=== PATIENT | female | born 1995 | race Caucasian/White ===

== ENCOUNTER 2019-07-30 19:51 | Emergency (ER) | payer BC ==
[~2019-07-30] VITALS: Ht 175.3 cm; Wt 52.3 kg
[2019-07-30 20:08] VITALS: Ht 175.3 cm; Wt 52.3 kg
[2019-07-30 20:45] LABS: BASOPHILS 0.4 % (0-2); EOSINOPHILS 6.6 % (0-7); HEMATOCRIT 43.2 % (36.0-48.0); HEMOGLOBIN 14.1 g/dL (12-16); IMMATURE GRANULOCYTES 0.8 % (0-5); LYMPHOCYTES 41.2 % (15-50); MCH 29.4 pg (26.0-34.0); MCHC 32.6 g/dL (31.0-37.0); MCV 90.2 fL (80.0-100.0); MEAN PLATELET VOLUME 9.3 fL (7.4-10.4); MONOCYTES 7.6 % (2-11); NEUTROPHILS 43.4 % (40-80); RBC 4.79 10x6/uL (4.00-5.40); RDW 12.4 % (11.5-14.5); WBC 9.7 10x3/uL (4.8-10.8)
[2019-07-30 20:51] LABS: PLATELET COUNT 357 10x3/uL (130-400)
[2019-07-30 20:57] LABS: APTT 27.4 SECONDS (22.8-39.4); CALC OSMOLALITY 274 mosm/kg (275-300); CALCIUM 8.9 mg/dL (8.5-10.1); CARBON DIOXIDE 26.4 mmol/L (21.0-32.0); CHLORIDE - SERUM 103 mmol/L (98-107); CREATININE - SERUM 0.7 mg/dL (0.6-1.3); GLUCOSE 83 mg/dL (74-106); INR 0.87 (0.85-1.17); POTASSIUM - SERUM 3.3 mmol/L (3.5-5.1); PROTIME 11.9 SECONDS (11.6-15.0); SODIUM 139 mmol/L (136-145); UREA NITROGEN 7 mg/dL (7-18); eGFR NON AFRICAN AMERICAN > 90 mL/min (90-120)
[2019-07-30 21:16] LABS: ALBUMIN 3.4 g/dL (3.4-5.0); ALKALINE PHOSPHATASE 142 U/L (30-120); ALT (SGPT) 67 U/L (10-68); BILIRUBIN - TOTAL 0.14 mg/dL (0.2-1.3); CKMB 0.8 U/L (0.0-3.6); CREATINE KINASE 93 UL (21-215); FERRITIN 87 ng/mL (3-244); PRO BNP 65 pg/mL (0-125); PROTEIN - SERUM 7.8 g/dL (6.4-8.2)
[2019-07-30 21:17] LABS: TROPONIN-I < 0.017 ng/mL (0.000-0.060)
[2019-07-30] MEDS ORDERED: AUGMENTIN 875-11 TAB PO (21:19)
[2019-07-30] MEDS ORDERED: FLUTICASONE PRO16 GM NASAL (21:19)
[2019-07-30] MEDS ORDERED: TESSALON PERLE100 MG PO (21:19)
[2019-07-30 21:31] VITALS: BP 131/84
== END 2019-07-30 21:31 | disposition home or self-care (01) ==
LOC: D.ER 19:51
PROVIDERS: Family Medicine
DX: J01.90 Acute sinusitis, unspecified (principal); F15.90 Other stimulant use, unspecified, uncomplicated; Z72.0 Tobacco use; R05 Cough

== ENCOUNTER 2019-07-31 11:13 | Emergency (ER) | payer BC ==
[~2019-07-31] VITALS: Ht 175.3 cm; Wt 52.3 kg
[~2019-07-31 11:13] MED LIST: AUGMENTIN 875-11 TAB PO; FLUTICASONE PRO16 GM NASAL; TESSALON PERLE100 MG PO
[2019-07-31 11:22] VITALS: Ht 175.3 cm; Wt 52.3 kg
[2019-07-31 11:49] LABS: UDS - AMPHET NEGATIVE QUAL (NEGATIVE); UDS - BARB NEGATIVE QUAL (NEGATIVE); UDS - BENZO NEGATIVE QUAL (NEGATIVE); UDS - COCAINE NEGATIVE QUAL (NEGATIVE); UDS - OPIATE NEGATIVE QUAL (NEGATIVE); UDS - PCP NEGATIVE QUAL (NEGATIVE); UDS - THC POSITIVE QUAL (NEGATIVE)
[2019-07-31 12:00] LABS: BASOPHILS 0.4 % (0-2); EOSINOPHILS 6.5 % (0-7); HEMATOCRIT 44.9 % (36.0-48.0); HEMOGLOBIN 14.6 g/dL (12-16); IMMATURE GRANULOCYTES 1.4 % (0-5); LYMPHOCYTES 31.2 % (15-50); MCH 29.5 pg (26.0-34.0); MCHC 32.5 g/dL (31.0-37.0); MCV 90.7 fL (80.0-100.0); MEAN PLATELET VOLUME 9.1 fL (7.4-10.4); MONOCYTES 9.5 % (2-11); PLATELET COUNT 358 10x3/uL (130-400); RBC 4.95 10x6/uL (4.00-5.40); RDW 12.5 % (11.5-14.5)
[2019-07-31 12:03] LABS: CALCIUM 8.5 mg/dL (8.5-10.1); CARBON DIOXIDE 28.7 mmol/L (21.0-32.0); CHLORIDE - SERUM 104 mmol/L (98-107); CREATININE - SERUM 0.8 mg/dL (0.6-1.3); GLUCOSE 72 mg/dL (74-106); SODIUM 138 mmol/L (136-145); eGFR NON AFRICAN AMERICAN > 90 mL/min (90-120)
[2019-07-31 12:07] LABS: CALC OSMOLALITY 271 mosm/kg (275-300); POTASSIUM - SERUM 3.8 mmol/L (3.5-5.1); UREA NITROGEN 5 mg/dL (7-18)
[2019-07-31 12:12] LABS: ALBUMIN 3.4 g/dL (3.4-5.0); ALKALINE PHOSPHATASE 126 U/L (30-120); ALT (SGPT) 72 U/L (10-68); PROTEIN - SERUM 7.9 g/dL (6.4-8.2)
--- NOTE | 2019-07-31 12:21 | NUR ---
According to the suicide assessment the patient scores high and she will need a 1:1 observation. Provide a safety sheet and a suicide resource flyer.
[2019-07-31 12:23] LABS: BILIRUBIN NEGATIVE (NEGATIVE); GLUCOSE NEGATIVE (NEGATIVE); KETONE NEGATIVE (NEGATIVE); NITRITE NEGATIVE (NEGATIVE); UROBILINOGEN NORMAL (NORMAL)
[2019-07-31 12:43] LABS: HCG SERUM NEGATIVE (NEGATIVE)
[2019-07-31 17:35] VITALS: BP 122/60
== END 2019-07-31 17:37 ==
LOC: D.ER 11:13
PROVIDERS: Emergency Medicine
DX: R45.851 Suicidal ideations (principal); F19.10 Other psychoactive substance abuse, uncomplicated; F32.9 Major depressive disorder, single episode, unspecified